=== PATIENT | male | born 1950 | race African-American/Black ===

== ENCOUNTER 2017-05-07 07:10 | Inpatient (IN) ==
--- NOTE | 2017-05-07 07:45 | EKG Report ---
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
[2017-05-07 07:55] LABS: Basophils % 0.4 % (0.0-0.8); Eosinophils # 0.2 10*3/uL (0.0-0.87); Eosinophils % 1.7 % (0.00-10.9); Hematocrit 38.1 VOL% (42.0-52.0); Hemoglobin 12.7 GM/DL (14.0-18.0); Immature Granulocytes % 0.3 %; Immature Granulocytes Absolute 0.03 #; Lymphocytes # 2.2 10*3/uL (1.4-4.0); Lymphocytes % 22.9 % (21.2-54.2); Mean Corpuscular HGB Conc 33.3 GM/DL (32-36); Mean Corpuscular Hemoglobin 29 PG (27-34); Mean Corpuscular Volume 87.4 FL (87-102); Mean Platelet Volume 8.6 FL (9.6-12.0); Monocytes # 0.9 10*3/uL (0.11-0.8); Monocytes % 9.1 % (1.7-12.7); Neutrophils # 6.3 10*3/uL (1.4-7.4); Neutrophils % 65.6 % (38.7-73.9); Platelet Count 437 T/CUMM (130-400); Red Blood Count 4.36 MC/CUMM (3.8-5.5); Red Cell Distribution Width 13.8 % (9.3-17.3); White Blood Count 9.6 T/CUMM (4-12)
[2017-05-07 08:23] LABS: Calcium 9.2 MG/DL (8.5-10.1); Magnesium 2.2 MG/DL (1.8-2.4); Osmolality,Calculated 270.8 MOS/KG (273-304); Potassium 3.9 MMOL/L (3.5-5.1)
[2017-05-07] MEDS ORDERED: SODIUM CHLORIDE 0.9% 100 ML IV ONE (09:22)
[2017-05-07] MEDS ORDERED: ceFAZolin 1,000 MG VIAL ONE (09:22)
[2017-05-07] MEDS ORDERED: LACTATED RINGERS 1,000 ML IV SCH (09:30)
--- NOTE | 2017-05-07 10:57 | Oncology History&Physical ---
Assessment and Plan (1) Colon cancer Status: Acute Assessment and plan: After his Mediport is placed today, will admit him to the hospital to begin FOLFOX chemotherapy. He will likely be discharged on Wednesday once chemotherapy is complete. Current Visit: Yes (2) Liver metastases Status: Acute Current Visit: Yes History of Present Illness History of present illness: Mr. 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 CT revealed numerous liver metastases and also an intra-abdominal lesion near his left ureter. I was called by his surgeon earlier this week out of concern for near total occlusion of his rectal lumen from the tumor. He stated that he was having a Mediport placed today so I offered to admit Mr. Gaston to begin chemotherapy over the weekend. Once the Mediport is placed this morning he will be admitted to E. and we will start FOLFOX chemotherapy. I spoke with Mr. Gaston and his family this morning. He seems to be doing fairly well. He states he has noticed some blood in his stool. His recent hemoglobin appeared within normal limits. His CEA was elevated at 33. I explained to him that chemotherapy is only palliative in nature since he has diffuse metastatic disease. We may consider resecting the primary tumor for palliative purposes if he responds well to chemotherapy. His appetite is good. He has noticed weight loss over the last few months though. Home Medications Medication Instructions Recorded Confirmed Type No Known Home Medications [No 05/07/17 05/07/17 History Known Home Medications] Allergies Allergy/AdvReac Type Severity Reaction Status Date / Time No Known Allergies Allergy Unverified 05/07/17 08:46 Medical,Surgical,& Family Hx - Medical History Cardio: No history of: Hypertension, [place], Pacemaker Neurology: History of: TIA No history of: Seizures HEENT: History of: Ear Problem (history of ear infection) Comment Only: HEENT Problems (sinus infections - history) Rheumatology: No history of;: Rheumatoid Arthritis, Rheumatological Problems Gastrointestinal: History of: GERD, Liver Problems (spots on the liver) No history of: Hemorrhoids, Hepatitis Musculoskeletal: No history of: Musculoskeletal Problems Other: History of: Cancer (rectal) - Surgical History Reproductive Surgeries: Patient denies;: Genitourinary Surgery - Family History Family History: Reports;: Family Cancer (FATHER - STOMACH CANCER), Family Hypertension, Family Stroke, Additional Family History (THYROID DISEASE) - Social History Smoking Status: Current every day smoker Frequency of Alcohol Use: Frequently Type of Drug Use: None 12 point system: reviewed and no additional remarkable complaints except as stated Exam - Constitutional Vitals: Period Temp Pulse Resp BP Sys/Solano Pulse Ox Last 24 Hr 99.4 F 79 20 130/86 100 General appearance: no acute distress, under weight - Head Head Exam: Present: normocephalic, atraumatic - Eye Eye Exam: Present: EOMI Pupils: Present: PERRL - ENT ENT exam: Present: normal exam, normal oropharynx - Neck Neck exam: Absent: lymphadenopathy, thyromegaly - Respiratory Respiratory exam: Present: CTAB. Absent: wheezes - Cardiovascular Cardiovascular exam: Present: RRR. Absent: JVD, systolic murmur - GI/Abdominal GI/Abdominal exam: Present: soft. Absent: ascites, distended, firm, mass - Neurological Exam Neurological exam: Present: alert, oriented X3 - Psychiatric Psychiatric exam: Present: normal affect, normal mood - Skin Skin exam: Present: warm, dry Results - Labs CBC & BMP: 05/07/17 07:47 05/07/17 07:47 Lab Results: I have reviewed the past 24 hour labs
[2017-05-07] MEDS ORDERED: LIDOCAINE 1%/EPI INJ 20 ML VIAL ONE (11:21)
[2017-05-07] MEDS ORDERED: BUPIVACAINE MPF 0.25% /EPI 30 ML VIAL ONE (11:21)
[2017-05-07] MEDS ORDERED: HEPARIN 5,000 UNIT/1 ML VIAL ONE (11:34)
--- NOTE | 2017-05-07 13:09 | Interventional Radiology Rpt ---
Exam: IR fluoro guide cv cath Date: 05/07/2017 Indication: Central catheter Comparison: None Findings: 46 seconds fluoroscopy time and 2 images were obtained with the distal tip in the superior vena cava right atrial junction. Fluoroscopy time provided to Dr. Palafox. Impression: 1. Satisfactory placement of catheter the upper aspect of the catheter is not included on the submitted images. PROCEDURE INTERPRETED AT [facility] DEPARTMENT OF RADIOLOGY Final Report Signed by: Dr. Luciano Jasso
--- NOTE | 2017-05-07 13:13 | Operative Note ---
Date of procedure: 05/07/17 Pre-op diagnosis: Rectal cancer with near obstruction Post-op diagnosis: same Procedure: PowerPort placement by external jugular vein cutdown Fluoroscopy for assistance with placement of tunneled central venous line with subcutaneous port Indications: The patient presented to my office this week with a history of biopsy of a rectal polyp positive for moderately differentiated adenocarcinoma. He gives a history of frequent loose stools. Exam is significant for large rectal mass. Endoscopy revealed a very narrow lumen which would not allow passage of the scope. Findings: An initial cutdown approach was utilized to attempt cephalic vein placement. The vein was identified, but was rather small. The catheter would not pass through the vein, and ultimately this vein was ligated. Subsequent to this the external jugular vein on the left was noted to be a large vessel. A cutdown was utilized for placement of the catheter. Catheter tip was placed at the atriocaval junction. Fluoroscopy was used to assist with this. Description of procedure detail: The patient was brought to the operating room , and placed supine position. General anesthesia was administered. The left neck and left chest were prepped and draped in sterile fashion to include Ioban. 1% lidocaine was injected over the deltopectoral groove. Incision was performed, and dissection was carried down through subcutaneous tissue to the level of the cephalic vein. The vein was identified and was felt to be of marginal size. Proximal and distal control was performed using silk stay sutures. The venotomy was then created and the catheter was threaded into the small vein. The catheter would not advance, even with flushing. Therefore, the vein was ligated proximally and distally with the stay sutures. Incision was then performed in the left neck after infiltrating with lidocaine. The external jugular vein was then dissected out, and isolated with silk stay sutures proximally and distally. A pursestring suture was placed in the anterior surface of the external jugular vein, so that ligation of the vein would not be necessary. After placing the Prolene suture, a venotomy was performed in the center of the pursestring. The catheter was threaded to five cm, but would not thread easily beyond this point, so fluoroscopy was used to assist positioning. The guidewire then was passed through the catheter so that it could be further advanced through the subclavian vein into the superior vena cava. Fluoroscopy was again used to assist this maneuver. Once the catheter tip was in the superior vena cava near the atriocaval junction, the pursestring suture was tied securing the catheter at the exit site from the external jugular vein. The catheter was then tunneled over the clavicle to the initial incision near the deltopectoral groove. The port was connected. The catheter was flushed and aspirated with ease. Tip position was once again confirmed with fluoroscopy. The port was then secured to the fascia of the chest wall with interrupted Vicryl. Interrupted Vicryl was used to reapproximate the deep dermis of both incisions. Continuous running Vicryl was then used to reapproximate skin in subcuticular position (both incisions.) Steri-Strips were placed and sterile dressing were applied. The port was accessed, flushed and aspirated with ease, and the excess needle remained. Sterile dressings were applied. The patient was awakened from anesthesia in stable condition. Anesthesia: MAC, local Surgeon / Physician: Alejandro Palafox Estimated blood loss: minimal Specimens: none sent Condition: stable Disposition: floor Results - Labs CBC & BMP: 05/07/17 07:47 05/07/17 07:47 Discharge Plan - Discharge Medications No Action No Known Home Medications [No Known Home Medications] - Follow Up or Referral - Forms/Instructions
--- NOTE | 2017-05-07 13:15 | Anesthesia Post-Op ---
Anesthesia Post OP - Post Ansesthetic Evaluation Patient seen in post op: Yes Resp: within normal limits CV: within normal limits Mental: within normal limits Temp: within normal limits [id number]: within normal limits Nausea and Vomiting: within normal limits Pain: within normal limits
[2017-05-07] MEDS ORDERED: SODIUM CHLORIDE 0.9% 200 ML IV ONE (13:25)
[2017-05-07] MEDS ORDERED: PROPOFOL 200 MG/20 ML VIAL IV ONE ×2 (13:25)
[2017-05-07] MEDS ORDERED: MIDAZOLAM 2 MG/2 ML VIAL ONE (13:25)
[2017-05-07] MEDS ORDERED: fentaNYL 100 MCG/2 ML VIAL ONE (13:25)
[2017-05-07] MEDS ORDERED: chlorproMAZINE INJ 50 MG in SODIUM CHLORIDE 0.9% 100 ML IV PRN ×2 (14:04→19:32)
[2017-05-07] MEDS ORDERED: ACETAMINOPHEN 325 MG TABLET PO PRN ×2 (14:04→19:32)
[2017-05-07] MEDS ORDERED: BENZTROPINE 2 MG/2 ML AMP IV PRN ×2 (14:04→19:32)
[2017-05-07] MEDS ORDERED: ONDANSETRON 4 MG/2 ML VIAL IV PRN ×2 (14:04→19:32)
[2017-05-07] MEDS ORDERED: LACTULOSE 20 GM/30 ML UDCUP PO PRN ×2 (14:04→19:32)
[2017-05-07] MEDS ORDERED: TEMAZEPAM 7.5 MG CAPSULE PO PRN ×2 (14:04→19:32)
[2017-05-07] MEDS ORDERED: MAGNESIUM HYDROXIDE SUSP 30 ML UDCUP PO PRN ×2 (14:04→19:32)
[2017-05-07] MEDS ORDERED: PROMETHAZINE INJ 25 MG in SODIUM CHLORIDE 0.9% 50 ML IV PRN ×2 (14:04→19:32)
[2017-05-07] MEDS ORDERED: MYLANTA/LIDO VISC 2:1 300 ML BOTTLE SWISH/SWAL PRN ×2 (14:04→19:32)
[2017-05-07] MEDS ORDERED: ALUMINUM/MAGNES/SIMETH MAX STR 30 ML UDCUP PO PRN ×2 (14:04→19:32)
[2017-05-07] MEDS ORDERED: ALPRAZolam 0.25 MG TABLET PO PRN ×2 (14:04→19:32)
[2017-05-07] MEDS ORDERED: LOPERAMIDE 2 MG CAPSULE PO PRN ×4 (14:04→19:32)
[2017-05-07] MEDS ORDERED: traMADol 50 MG TABLET PO PRN ×2 (14:04→19:32)
[2017-05-07] MEDS ORDERED: MYLANTA/LIDO VISC 2:1 300 ML BOTTLE SWISH/SPIT PRN ×2 (14:04→19:32)
[2017-05-07] MEDS ORDERED: diphenhydrAMINE CAP 25 MG CAPSULE PO PRN ×2 (14:04→19:32)
[2017-05-07] MEDS ORDERED: chlorproMAZINE 25 MG TABLET PO PRN ×2 (14:04→19:32)
[2017-05-07] MEDS ORDERED: chlorproMAZINE INJ 25 MG in SODIUM CHLORIDE 0.9% 100 ML IV PRN ×2 (14:04→19:32)
[2017-05-07] MEDS ORDERED: guaiFENesin 200 MG/10 ML UDCUP PO PRN ×2 (14:04→19:32)
[2017-05-07] MEDS ORDERED: DEXAMETHASONE INJ 20 MG in SODIUM CHLORIDE 0.9% 50 ML IV ONE (14:30)
[2017-05-07] MEDS ORDERED: LEUCOVORIN INJ 600 MG in DEXTROSE 5% 250 ML IV ONE (15:00)
[2017-05-07] MEDS ORDERED: GRANISETRON 1 MG/1 ML VIAL IV SCH (15:00)
[2017-05-07] MEDS ORDERED: DEXTROSE 5% IV ONE (15:00)
[2017-05-07] MEDS ORDERED: OXALIPLATIN IV ONE (15:00)
[2017-05-07] MEDS ORDERED: FLUOROURACIL IV ONE (15:00)
[2017-05-07] MEDS: FLUOROURACIL 2,000 MG in SODIUM CHLORIDE 0.9% 1,000 ML IV SCH (18:45)
[2017-05-08] MEDS ORDERED: HEPARIN LOCK FLUSH 500 UNIT/5 ML SYRINGE IV ONE (02:56)
[2017-05-08 07:27] LABS: Basophils % 0.1 % (0.0-0.8); Hematocrit 30.4 VOL% (42.0-52.0); Hemoglobin 10.4 GM/DL (14.0-18.0); Immature Granulocytes % 0.5 %; Immature Granulocytes Absolute 0.05 #; Lymphocytes # 1.2 10*3/uL (1.4-4.0); Lymphocytes % 11.7 % (21.2-54.2); Mean Corpuscular HGB Conc 34.2 GM/DL (32-36); Mean Corpuscular Hemoglobin 30 PG (27-34); Mean Corpuscular Volume 87.6 FL (87-102); Monocytes # 0.2 10*3/uL (0.11-0.8); Monocytes % 2.1 % (1.7-12.7); Neutrophils # 8.8 10*3/uL (1.4-7.4); Neutrophils % 85.6 % (38.7-73.9); Platelet Count 409 T/CUMM (130-400); Red Blood Count 3.47 MC/CUMM (3.8-5.5); Red Cell Distribution Width 13.8 % (9.3-17.3); White Blood Count 10.3 T/CUMM (4-12)
[2017-05-08 08:10] LABS: Albumin 2.5 G/DL (3.4-5.0); Bilirubin,Total 0.4 MG/DL (0.2-1.0); Calcium 8.2 MG/DL (8.5-10.1); Magnesium 1.8 MG/DL (1.8-2.4); Osmolality,Calculated 274.8 MOS/KG (273-304); Potassium 3.9 MMOL/L (3.5-5.1); Total Protein 6.1 G/DL (6.4-8.3)
--- NOTE | 2017-05-08 08:27 | Oncology Progress Note ---
Assessment and Plan (1) Colon cancer Status: Acute Current Visit: Yes (2) Liver metastases Status: Acute Current Visit: Yes Oncology Subjective PN Interval history: Mr. Gaston is doing well. He is now been on chemotherapy for the past 14 hours has had no complications. He complains of a sore throat but is most likely secondary to the ventilation device from his surgery yesterday. I am unsure if he had an LMA on ET tube. He also received oxaliplatin yesterday which can make her throw very sensitive. His appetite is good. He is ambulating and I encouraged him to ambulate in the hallway numerous times today. He will finish chemotherapy tomorrow afternoon we will discharge him home at that time. I will order a CT of his chest and a bone scan today for complete staging of his colon cancer. He does complain of pain over his left hip. Exam - Constitutional Vitals: Period Temp Pulse Resp BP Sys/Solano Pulse Ox Last 24 Hr 97.4 F-99.4 F 67-122 16-20 101-136/64-87 95-100 General appearance: no acute distress, under weight - Head Head Exam: Present: normocephalic, atraumatic - Eye Eye Exam: Present: EOMI Pupils: Present: PERRL - ENT ENT exam: Present: normal exam, normal oropharynx - Neck Neck exam: Absent: lymphadenopathy, thyromegaly - Respiratory Respiratory exam: Present: CTAB. Absent: wheezes - Cardiovascular Cardiovascular exam: Present: RRR. Absent: JVD - GI/Abdominal GI/Abdominal exam: Present: soft. Absent: ascites, distended, firm, mass - Neurological Exam Neurological exam: Present: alert, oriented X3 Results - Labs CBC & BMP: 05/08/17 04:50 05/08/17 04:50 Lab Results: I have reviewed the past 24 hour labs Specialty Discharge - Follow Up or Referrals Follow up with: Gopi Stevenson MD [Physician] - 05/19/17 12:30 pm
--- NOTE | 2017-05-08 12:20 | CT Report ---
History: Colon cancer. Metastatic disease Date: 05/08/2017 Study: CT chest with IV contrast Comparison exam: No previous chest CT available Spiral CT sections were obtained through the lungs following the IV administration of 80 mL of Omnipaque 350 without immediate complication. The CT exam was performed using one or more of the following dose reduction techniques: Automated exposure control, adjustment of the mA and/or kV according to patient size, or use of iterative reconstruction technique. A left subclavian Mediport catheter is positioned with its tip in the superior vena cava. There is soft tissue emphysema related to recent catheter placement. There is no mediastinal lymphadenopathy by short axis diameter criteria. There is no mediastinal mass. There is no thoracic aortic aneurysm or dissection. There is no discrete pulmonary mass to suggest metastatic disease. There is mild scattered centrilobular emphysema, more so in the upper lung zones. There is no pleural or pericardial effusion. There is mild platelike subsegmental atelectasis in the lung bases. There is an area of benign appearing cystic change in the left humerus surgical neck. There are numerous ill-defined low densities compatible with metastatic disease within the liver, including a 4 cm lesion superiorly in the anterior segment. There is also confluent medium density material in the left renal pelvis of uncertain etiology which was not present on a comparison CT abdomen and pelvis from [facility] on April 30, 2017. This could represent products of hemorrhage within the left renal pelvis. Impression: No evidence of pulmonary metastatic disease Hepatic metastases Confluent medium density material within the left renal pelvis which could represent products of hemorrhage within the left renal pelvis which have developed since the outside CT abdomen from April 30, 2017 Centrilobular pulmonary emphysema PROCEDURE INTERPRETED AT [facility] DEPARTMENT OF RADIOLOGY Final Report Signed by: Dr. Mariam Alfred
[2017-05-08] MEDS: FLUOROURACIL 2,000 MG in SODIUM CHLORIDE 0.9% 1,000 ML IV SCH (18:15)
[2017-05-09 03:36] LABS: Basophils % 0.4 % (0.0-0.8); Eosinophils # 0.1 10*3/uL (0.0-0.87); Eosinophils % 0.7 % (0.00-10.9); Hematocrit 30.2 VOL% (42.0-52.0); Hemoglobin 10.3 GM/DL (14.0-18.0); Immature Granulocytes % 0.2 %; Immature Granulocytes Absolute 0.02 #; Lymphocytes # 2.2 10*3/uL (1.4-4.0); Lymphocytes % 27.1 % (21.2-54.2); Mean Corpuscular HGB Conc 34.1 GM/DL (32-36); Mean Corpuscular Hemoglobin 30 PG (27-34); Mean Corpuscular Volume 86.5 FL (87-102); Mean Platelet Volume 9.2 FL (9.6-12.0); Monocytes # 0.4 10*3/uL (0.11-0.8); Monocytes % 4.5 % (1.7-12.7); Neutrophils # 5.4 10*3/uL (1.4-7.4); Neutrophils % 67.1 % (38.7-73.9); Platelet Count 381 T/CUMM (130-400); Red Blood Count 3.49 MC/CUMM (3.8-5.5); Red Cell Distribution Width 13.9 % (9.3-17.3); White Blood Count 8.1 T/CUMM (4-12)
[2017-05-09 04:31] LABS: Albumin 2.3 G/DL (3.4-5.0); Bilirubin,Total 0.6 MG/DL (0.2-1.0); Calcium 8.5 MG/DL (8.5-10.1); Magnesium 2.1 MG/DL (1.8-2.4); Osmolality,Calculated 276.5 MOS/KG (273-304); Potassium 3.6 MMOL/L (3.5-5.1); Total Protein 5.4 G/DL (6.4-8.3); Uric Acid 5.3 MG/DL (3.5-7.2)
[2017-05-09] MEDS ORDERED: NICOTINE 21 MG/24 HR PATCH TRANSDERM SCH (09:00)
--- NOTE | 2017-05-09 09:16 | Discharge Summary ---
Diagnosis - Discharge Diagnosis (1) Colon cancer Status: Acute (2) Liver metastases Status: Acute Specialty Discharge - Follow Up or Referrals Follow up with: Gopi Stevenson MD [Physician] - 05/19/17 12:30 pm Discharge Plan - Discharge Data Disposition: Disch To Home/Self Care Condition at Discharge: Stable Discharge Diet: advance to your usual diet Activity: resume usual activities as tolerated Hygiene: no restrictions Weight Bearing at Discharge: full weight bearing - Discharge Medications New Ondansetron Tab [Zofran Tab] 4 mg PO Q6HR PRN #30 tablet PRN Reason: Nausea HYDROcodone/ACETAMIN 5-325 [[place] 5-325] 1 tablet PO Q6H PRN #40 tablet PRN Reason: Pain - Follow Up or Referral Follow Up: Gopi Stevenson MD [Physician] - 05/19/17 12:30 pm - Forms/Instructions Exam - Constitutional Vitals: Period Temp Pulse Resp BP Sys/Solano Pulse Ox Last 24 Hr 97.5 F-99.6 F 70-80 16-18 104-125/60-69 96-100 Discharge Results Procedures and tests throughout hospitalization: Pending Orders 05/07/17 19:33 Urinalysis Routine 05/08/17 08:24 NM bone scan whole body Routine 05/10/17 04:00 Comp Blood Count Auto Diff IN AM Comprehensive Metabolic Panel IN AM Lactate Dehydrogenase IN AM Magnesium IN AM Uric Acid IN AM Labs on day of discharge: Labs from last 24 hours 05/09/17 05/09/17 03:10 03:10 WBC 8.1 RBC 3.49 L Hgb 10.3 L Hct 30.2 L MCV 86.5 L MCH 30 MCHC 34.1 RDW 13.9 Plt Count 381 MPV 9.2 L Neut % (Auto) 67.1 Lymph % (Auto) 27.1 [place] % (Auto) 4.5 Eos % (Auto) 0.7 Baso % (Auto) 0.4 Neut # (Auto) 5.4 Lymph # (Auto) 2.2 [place] # (Auto) 0.4 Eos # (Auto) 0.1 Baso # (Auto) 0.0 Immature Gran % 0.2 Nucleated RBC % 0.0 Immature Gran # 0.02 Nucleated RBCs # 0.00 Sodium 139 Potassium 3.6 Chloride 103 Carbon Dioxide 28 Anion Gap 11.6 BUN 12 Creatinine 1.10 GFR Calculation 81 BUN/Creatinine Ratio 10.00 Glucose 94 Calculated Osmolality 276.5 Uric Acid 5.3 Calcium 8.5 Magnesium 2.1 Total Bilirubin 0.60 AST 19 ALT 12 L Alkaline Phosphatase 78 Lactate Dehydrogenase 194 Total Protein 5.4 L Albumin 2.3 L Globulin 3.1 Albumin/Globulin Ratio 0.7 L DS: Provider Date of admission: 05/07/17 08:45 Primary care physician: . No PCP Attending physician on admission: Gopi Stevenson MD Consults: 05/07/17 14:27 Consult to Dietitian [CONS] Routine Reason for Dietitian: Diet Instruction Discharging clinician: Gopi Stevenson MD
[2017-05-09 16:13] VITALS: BP 131/86
[2017-05-09] MEDS ORDERED: HEPARIN LOCK FLUSH 500 UNIT/5 ML SYRINGE IV PRN (16:31)
== END 2017-05-09 17:19 | disposition home or self-care (01) | DRG 847 ==
LOC: N.OR 07:10 → N.SDSINP 07:23 → N.4E 08:45
PROVIDERS: ADMIT Specialist; ATTEND Specialist